=== PATIENT | female | born 1985 | race Caucasian/White ===

== ENCOUNTER → 2021-05-30 | Outpatient (CLI) | payer BC ==
[~2021-05-30] MED LIST: ALPR0.5T3 PO; METHYLFOLATE PO; METO1TAB7 PO; PANT40TA29 PO; PROAAER10 INH; VYVA70CA3 PO; ZYRTTAB8 PO
== END ==
LOC: M LABSMTC 11:02
PROVIDERS: ATTEND Anesthesiology
DX: Z01.818 Encounter for other preprocedural examination (principal); Z11.52 Encounter for screening for COVID-19

== ENCOUNTER 2021-06-04 11:37 | Day surgery (SDC) | payer BC ==
[~2021-06-04] VITALS: Ht 170.2 cm; Wt 111.1 kg
[~2021-06-04 11:37] MED LIST changes: +LIDOCAINE 2% 100MG/5ML SDV (FOR ANES.) As Ordered ONE; +NS 1,000 ML IV ONE; +fentaNYL 100 MCG/2 ML INJECTION (J3010) As Ordered ONE; +propofoL 500 MG/50 ML VIAL As Ordered ONE
--- NOTE | 2021-06-04 13:09 | ROOR ---
Patient Name: Shannon Osuna Procedure Date: 06/04/2021 12:54 PM Date of : 1985 Age: 36 Room: [facility] Gender: Female Note Status: Finalized Procedure: Upper GI endoscopy Indications: Dyspepsia, Heartburn Providers: Dandre Tomas MD Referring MD: ISAAK GODINEZ MD Requesting Provider: Medicines: Monitored Anesthesia Care Complications: No immediate complications. Procedure: Pre-Anesthesia Assessment: - The heart rate, respiratory rate, oxygen saturations, blood pressure, adequacy of pulmonary ventilation, and response to care were monitored throughout the procedure. The Endoscope was introduced through the mouth, and advanced to the third part of duodenum. The upper GI endoscopy was accomplished without difficulty. The patient tolerated the procedure well. Findings: The examined esophagus was normal. Diffuse mildly erythematous mucosa was found in the gastric antrum. Biopsies were taken with a cold forceps for histology. The exam of the stomach was otherwise normal. The examined duodenum was normal. Impression: - Normal esophagus. - Minimal gastritis/Erythematous mucosa in the antrum. Biopsied. - Otherwise normal stomach. - Normal examined duodenum. Recommendation: - If applicable: No ibuprofen, naproxen, or other non-steroidal anti-inflammatory drugs. - Continue present medications. - Observe patient's clinical course. Procedure Code(s): --- Professional --- 20326, Esophagogastroduodenoscopy, flexible, transoral; with biopsy, single or multiple Diagnosis Code(s): --- Professional --- R12, Heartburn R10.13, Epigastric pain K31.89, Other diseases of stomach and duodenum CPT copyright 2019 [employer]. All rights reserved. The codes documented in this report are preliminary and upon medical record coder review may be revised to meet current compliance requirements. Dandre Tomas MD Dandre Tomas MD 06/04/2021 1:08:46 PM Electronically signed by Dandre Tomas MD Number of Addenda: 0 Note Initiated On: 06/04/2021 12:54 PM Estimated Blood Loss: Estimated blood loss: none.
[2021-06-04] MEDS ORDERED: propofoL 200 MG/20 ML VIAL As Ordered ONE (13:17)
--- NOTE | 2021-06-04 13:32 | ROOR ---
Patient Name: Shannon Osuna Procedure Date: 06/04/2021 12:55 PM Date of : 1985 Age: 36 Room: [facility] Gender: Female Note Status: Finalized Procedure: Colonoscopy Indications: Family history of colon cancer in a first-degree relative before age 60 years, Incidental change in bowel habits noted Providers: Dandre Tomas MD Referring MD: ISAAK GODINEZ MD Requesting Provider: Medicines: Monitored Anesthesia Care Complications: No immediate complications. Procedure: Pre-Anesthesia Assessment: - The heart rate, respiratory rate, oxygen saturations, blood pressure, adequacy of pulmonary ventilation, and response to care were monitored throughout the procedure. The Colonoscope was introduced through the anus and advanced to 10 cm into the ileum. The colonoscopy was performed without difficulty. The patient tolerated the procedure well. The quality of the bowel preparation was good. Findings: The perianal and digital rectal examinations were normal. Scattered medium-mouthed diverticula were found in the left colon and right colon. Small Internal Hemorrhoids. The exam was otherwise without abnormality on direct and retroflexion views. Biopsies for histology were taken with a cold forceps from the entire colon for evaluation of microscopic colitis. Impression: - Diverticulosis in the left colon and in the right colon. - Small Internal Hemorrhoids. - The examination was otherwise normal on direct and retroflexion views. - Biopsies were taken with a cold forceps from the entire colon for evaluation of microscopic colitis. Recommendation: - Telephone endoscopist for pathology results in 2 weeks. - Use fiber, for example Citrucel, Fibercon, Konsyl or Metamucil. Procedure Code(s): --- Professional --- 94456, Colonoscopy, flexible; with biopsy, single or multiple Diagnosis Code(s): --- Professional --- K57.30, Diverticulosis of large intestine without perforation or abscess without bleeding Z80.0, Family history of malignant neoplasm of digestive organs CPT copyright 2019 [employer]. All rights reserved. The codes documented in this report are preliminary and upon linux vmware administrator review may be revised to meet current compliance requirements. Dandre Tomas MD Dandre Tomas MD 06/04/2021 1:31:23 PM Electronically signed by Dandre Tomas MD Number of Addenda: 0 Note Initiated On: 06/04/2021 12:55 PM Estimated Blood Loss: Estimated blood loss: none.
[2021-06-04 13:45] VITALS: BP 147/100
== END 2021-06-04 14:01 | disposition home or self-care (01) ==
LOC: M OPP 11:37
PROVIDERS: ATTEND Internal Medicine Gastroenterology
DX: R19.4 Change in bowel habit (principal); Z80.0 Family history of malignant neoplasm of digestive organs; R10.13 Epigastric pain; K31.89 Other diseases of stomach and duodenum; K57.30 Diverticulosis of large intestine without perforation or abscess without bleeding; K64.8 Other hemorrhoids; I10 Essential (primary) hypertension; J45.909 Unspecified asthma, uncomplicated; F41.9 Anxiety disorder, unspecified; Z87.891 Personal history of nicotine dependence; Z79.899 Other long term (current) drug therapy
CPT/HCPCS: 43239; 45380; 88305; J3010